=== PATIENT | male | born 1990 | race Caucasian/White ===

== ENCOUNTER 2017-02-21 21:00 | Emergency (ER) | payer SELFPAY ==
[~2017-02-21 21:00] MED LIST: NO MEDICATIONS
== END 2017-02-21 21:04 | disposition home or self-care (01) ==
LOC: SED 21:00
DX: R68.84 Jaw pain (principal); R03.0 Elevated blood-pressure reading, without diagnosis of hypertension; F17.210 Nicotine dependence, cigarettes, uncomplicated; Z88.8 Allergy status to other drugs, medicaments and biological substances
CPT/HCPCS: 99283